=== PATIENT | female | born 1965 | race Two or more races ===

== ENCOUNTER → 2017-12-09 13:17 | Outpatient (CLI) | payer MEDICAID, SELFPAY ==
--- NOTE | 2017-12-09 13:21 | RAD_ITS ---
STUDY: X-RAY CHEST REASON FOR EXAM: Female, 52 years old. Bronchitis, cough for 2 months TECHNIQUE: PA and lateral views of the chest. COMPARISON: None. FINDINGS: The lungs are clear and expanded. There is no demonstrated pleural abnormality. Normal size heart. Normal mediastinum and diana. Normal visualized pulmonary arteries. Normal visualized aortic arch and descending thoracic aorta. There are diffuse degenerative changes of the visualized thoracic spine. There appears to be a small bone island within the inferior right scapula. There is no demonstrated abnormality of the visualized soft tissue structures of the upper abdomen. RAD/Chest PA and Lateral IMPRESSION: Degenerative changes, as described above. No demonstrated acute cardiopulmonary process. Electronically Signed: Yvan Tovar DO at 9:06 EDT Tel , Service support ,
== END ==
PROVIDERS: Family Provider Family Medicine Geriatric Medicine; PCP Family Medicine Geriatric Medicine; Visit Provider Family Medicine Geriatric Medicine
DX: J40 Bronchitis, not specified as acute or chronic (principal)
CPT/HCPCS: 71046

== ENCOUNTER 2019-01-23 12:54 | Emergency (ER) | payer MEDICAID, SELFPAY ==
[2019-01-23 12:55] VITALS: BP 134/65; PULSE 85; RESP 18; TEMP 36.4; O2SAT 98; BMI 46.0
--- NOTE | 2019-01-23 13:09 | EKG12_ITS ---
Test Reason : REPEAT Blood Pressure : / mmHG Vent. Rate : 072 BPM Atrial Rate : 072 BPM P-R Int : 160 ms QRS Dur : 086 ms QT Int : 396 ms P-R-T Axes : 004 -11 -18 degrees QTc Int : 433 ms Normal sinus rhythm Nonspecific ST and T wave abnormality Abnormal ECG Confirmed by RALF GUY ([id number]), marketing editor OLIMPIA CA ([id number]) on 01/24/2019 1:38:22 PM Referred By: FABI Confirmed By:RALF GUY
--- NOTE | 2019-01-23 13:20 | RAD_ITS ---
STUDY: X-RAY CHEST REASON FOR EXAM: Female, 53 years old. TECHNIQUE: COMPARISON: December 09, 2017 FINDINGS: The lungs are clear and expanded. There is no demonstrated pleural abnormality. Normal size heart. Normal mediastinum and diana. Normal visualized pulmonary arteries. Normal visualized aortic arch and descending thoracic aorta. Normal visualized thoracic spine. Normal visualized ribs, clavicles, and shoulders. There is no demonstrated abnormality of the visualized soft tissue structures of the upper abdomen. RAD/Chest 1 View (Portable) IMPRESSION: Normal x-ray examination of the chest. Electronically Signed: Virginia Michael, at 13:39 EDT Tel , Service support ,
[2019-01-23 13:31] LABS: Basophil# 0.04 X10^3/uL; Basophil% 0.6 % (0-1); Eosinophil# 1.11 X10^3/uL; Eosinophils% 16.8 % (0-5); Hematocrit 37.5 % (37-47); Hemoglobin 12.3 g/dl (12.0-15.0); Lymphocyte % 27.3 % (19-41); Mean Corp Hgb Conc 32.8 g/gl (32-36); Mean Corpuscular Hgb 28.9 pg (27.0-32.0); Mean Corpuscular Volume 88.2 fL (81-99); Mean Platelet Vol. 8.9 fl (6.2-12.0); Monocyte# 0.58 X10^3/uL; Monocyte% 8.8 % (0-10); Neutrophil # 3.04 X10^3/uL (2.7-7.7); Neutrophil % 46.2 % (47-70); POSITIVE COUNT NO; POSITIVE DIFFERENTIAL NO; POSITIVE MORPHOLOGY NO; Platelet Count 236 K/mm3 (150-450); RBC Distribution Width CV 13.4 % (11.6-14.6); RBC Distribution Width SD 42.8 fl (35.1-43.9); Red Blood Count 4.25 M/mm3 (4.2-5.4); White Blood Count 6.6 K/mm3 (4.4-11.0)
[2019-01-23 13:46] LABS: Anion Gap 11 (5-15); BUN 15 mg/dL (7-18); BUN/Creat Ratio 17.2 RATIO (10-20); Chloride 103 mmol/L (98-107); Creatinine, Serum 0.87 mg/dL (0.55-1.02); EST Glomerular Filtration Rate 72 mL/min (>60); Est Glom Filt Rate - Afr Amer 87 mL/min (>60); Estimated Creatinine Clearance 59.15 ml/min; Glucose 100 mg/dL (74-106); Potassium 3.8 mmol/L (3.5-5.1); Sodium Level 142 mmol/L (136-145)
[2019-01-23 13:55] VITALS: BP 115/75; PULSE 83; RESP 16; O2SAT 96
[2019-01-23 14:00] VITALS: BP 148/85; PULSE 76; RESP 16; O2SAT 98
[2019-01-23] MEDS: Aspirin 81 MG TAB.CHEW 324 MG PO (14:12)
[2019-01-23 16:00] VITALS: BP 136/78; PULSE 76; RESP 16; O2SAT 96
--- NOTE | 2019-01-23 16:34 | EKG12_ITS ---
Test Reason : CP Blood Pressure : / mmHG Vent. Rate : 085 BPM Atrial Rate : 085 BPM P-R Int : 160 ms QRS Dur : 090 ms QT Int : 364 ms P-R-T Axes : 043 -16 011 degrees QTc Int : 433 ms Normal sinus rhythm Minimal voltage criteria for LVH, may be normal variant Borderline ECG Confirmed by RALF GUY ([id number]), graphic editor DYAN HOUSER ([id number] on 01/25/2019 8:33:36 AM Referred By: PIPE Confirmed By:RALF GUY
--- NOTE | 2019-01-23 16:34 | ED.VISSUMM ---
- ER Visit Summary Date of Service: 01/23/19 Chief Complaint: Chest discomfort History of Present Illness: The patient is a 53 F with history of MS and anxiety. Also hypertension high cholesterol. No history of cardiac disease nor any PE. Patient states for the last 3 weeks she has had some intermittent chest discomfort which she describes as sharp. Last less than a minute. Not associated with exertion. States that she has put on a lot of weight in the last 2 years. States she has exertional dyspnea but that is not new. She denies any exertional chest pain. She is never had a cardiac catheterization nor as she has had a stress test. He denies any recent travel, surgery or immobilization. She denies any leg pain or swelling. Pain is not pleuritic. She has not had any hemoptysis. Physical Examination: Middle-aged female vital signs stable and afebrile pulse ox 98% on 2 L. No hypoxia. HEENT exam unremarkable. Neck nontender no lymphadenopathy. Lungs clear to auscultation bilaterally. Heart regular rate and rhythm no murmur rate about 80. Chest wall nontender. No ecchymosis or bruising. No subcu air crepitance. Abdomen soft nontender normal bowel sounds no peritoneal signs. Patient is moving all 4 extremities. Calves are nontender without edema or cords. She is equal symmetrical radial pulses. Neurologically she is awake and alert with no focal motor deficits. 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 Normal dorsi and plantar flexion. Test Results: Chest x-ray normal cardiac silhouette mediastinum portable view read by myself and radiologist. No acute abnormality. EKG sinus rhythm rate 85 with no acute signs of MT or ischemia. Repeat EKG was done and showed no new findings and was unchanged. CBC normal white count 6 hemoglobin 12. Electrolytes normal normal creatinine and gap. Troponin normal at less than 0.015. Emergency Department Course and Treatment: Patient with atypical nonexertional chest pain. She has a history of anxiety and 2 weeks ago she lost her . She states she is under a lot of stress. I explained to her that I could not rule in or out this being cardiac in etiology. She however all of her test results. I discussed with both her and her daughter about admitting her in getting inpatient stress test. Patient was absolutely against this and stated she had things to do at home and had to help her daughter watch her grandchildren. And wants to be discharged we will follow-up in outpatient with her primary care physician Dr. Perry and get an outpatient stress test. I have Dr. Roberts on patient discussed this with him. Treatment Plan: Discharged home. Follow-up with primary care physician soon as possible to get a stress test within the next week. Return if feeling worse. Disposition: Discharge Impression: Acute atypical chest pain of uncertain etiology This note was generated with [employer] dictation software. It may contain incorrect words, spelling, and punctuation that were not noted in review of the chart prior to signing ED Disposition - Plan for ED Patient: Referrals: Miguel Perry Chi, MD [Primary Care Provider] -
--- NOTE | 2019-01-23 16:39 | ED.DEP ---
ED Disposition - Plan for ED Patient: Disposition: Home or Assisted Living Instructions: CHEST PAIN, Uncertain Cause Referrals: Miguel Perry Chi, MD [Primary Care Provider] - As soon as possible Additional Instructions: Follow-up with Dr. Perry to get an outpatient stress test scheduled as soon as possible hopefully within the next 5 to 7 days. Return to the ER if you are feeling worse specifically if you are short of breath or have worsening chest pain.
[2019-01-23 16:59] VITALS: BP 136/78; PULSE 76; RESP 16; O2SAT 96
== END 2019-01-23 17:00 | disposition home or self-care (01) ==
PROVIDERS: Emergency Provider Emergency Medicine; Family Provider Family Medicine Geriatric Medicine; PCP Family Medicine Geriatric Medicine
DX: R07.89 Other chest pain (principal); Z87.891 Personal history of nicotine dependence
CPT/HCPCS: 71045; 80048; 84484; 85025; 93005; 99284; A4216

== ENCOUNTER → 2019-01-24 14:52 | Outpatient (CLI) | payer MEDICAID, SELFPAY ==
[2019-01-23 12:55] VITALS: BMI 46.0
[2019-01-24 17:33] LABS: Absolute Lymphocyte Count 2.07 X10^3/ul (0.83-4.51); Absolute Neutrophil Count 3.7 X10^3/uL (2.0-7.7); Basophil# 0.05 X10^3/uL; Basophil% 0.6 % (0-1); Eosinophil# 1.36 X10^3/uL; Eosinophils% 17.6 % (0-5); Hematocrit 37.4 % (37-47); Hemoglobin 12.1 g/dl (12.0-15.0); Lymphocyte # 2.07 X10^3/ul (4.0); Lymphocyte % 26.8 % (19-41); Mean Corp Hgb Conc 32.4 g/gl (32-36); Mean Corpuscular Hgb 28.9 pg (27.0-32.0); Mean Corpuscular Volume 89.3 fL (81-99); Mean Platelet Vol. 9.5 fl (6.2-12.0); Monocyte# 0.54 X10^3/uL; Neutrophil # 3.68 X10^3/uL (2.7-7.7); Neutrophil % 47.7 % (47-70); Platelet Count 275 K/mm3 (150-450); RBC Distribution Width CV 13.5 % (11.6-14.6); RBC Distribution Width SD 43.6 fl (35.1-43.9); Red Blood Count 4.19 M/mm3 (4.2-5.4); White Blood Count 7.7 K/mm3 (4.4-11.0)
[2019-01-24 17:38] LABS: POSITIVE COUNT NO; POSITIVE DIFFERENTIAL NO; POSITIVE MORPHOLOGY NO
[2019-01-24 17:50] LABS: ALB/GLOB Ratio 0.9 RATIO (0.9-2.4); AST(SGOT) 27 U/L (15-37); Alanine Aminotransfer ALT/SGPT 47 U/L (13-56); Albumin, Serum 3.4 g/dL (3.2-5.0); Alkaline Phosphatase 78 U/L (45-117); Anion Gap 5 (5-15); BUN 16 mg/dL (7-18); BUN/Creat Ratio 19.3 RATIO (10-20); Calcium,Total 9.2 mg/dL (8.5-10.1); Chloride 106 mmol/L (98-107); Creatinine, Serum 0.83 mg/dL (0.55-1.02); EST Glomerular Filtration Rate 76 mL/min (>60); Est Glom Filt Rate - Afr Amer 93 mL/min (>60); Globulin 3.9 g/dL (2.2-4.2); Glucose 98 mg/dL (74-106); Potassium 3.7 mmol/L (3.5-5.1); Protein, Total 7.3 g/dL (6.4-8.2); Sodium Level 138 mmol/L (136-145); Thyroid Stim Hormone (TSH) 4.25 uIU/mL (0.358-3.74)
== END ==
PROVIDERS: Family Provider Family Medicine Geriatric Medicine; PCP Family Medicine Geriatric Medicine; Visit Provider Family Medicine Geriatric Medicine
DX: I10 Essential (primary) hypertension (principal)
CPT/HCPCS: 36415; 80053; 84443; 85025

== ENCOUNTER → 2020-08-05 15:08 | Outpatient (CLI) | payer MEDICAID, SELFPAY ==
[2020-08-05 16:10] LABS: Absolute Lymphocyte Count 1.69 X10^3/uL (0.83-4.51); Absolute Neutrophil Count 3.8 X10^3/uL (2.0-7.7); Basophil# 0.03 X10^3/uL; Basophil% 0.5 % (0-1); Eosinophil# 0.33 X10^3/uL; Eosinophils% 5.1 % (0-5); Hematocrit 40.5 % (37-47); Hemoglobin 13.5 g/dL (12.0-15.0); Lymphocyte # 1.69 X10^3/ul (4.0); Lymphocyte % 26.3 % (19-41); Mean Corp Hgb Conc 33.3 g/dL (32-36); Mean Corpuscular Hgb 29.5 pg (27.0-32.0); Mean Corpuscular Volume 88.6 fL (81-99); Mean Platelet Vol. 9.1 fl (6.2-12.0); Monocyte# 0.53 X10^3/uL; Monocyte% 8.3 % (0-10); NRBC Flagged by Analyzer 0 % (0-5); Neutrophil # 3.81 X10^3/uL (2.7-7.7); Neutrophil % 59.3 % (47-70); Platelet Count 273 K/mm3 (150-450); RBC Distribution Width CV 12.3 % (11.6-14.6); RBC Distribution Width SD 39.6 fl (35.1-43.9); Red Blood Count 4.57 M/mm3 (4.2-5.4); White Blood Count 6.4 K/mm3 (4.4-11.0)
[2020-08-05 16:41] LABS: ALB/GLOB Ratio 0.9 RATIO (0.9-2.4); AST(SGOT) 18 U/L (15-37); Alanine Aminotransfer ALT/SGPT 38 U/L (13-56); Albumin, Serum 3.5 g/dL (3.2-5.0); Alkaline Phosphatase 79 U/L (45-117); BUN 16 mg/dL (7-18); BUN/Creat Ratio 18.5 RATIO (10-20); Calcium,Total 9.1 mg/dL (8.5-10.1); Creatinine, Serum 0.87 mg/dL (0.55-1.02); EST Glomerular Filtration Rate 72 mL/min (>60); Est Glom Filt Rate - Afr Amer 87 mL/min (>60); Globulin 3.9 g/dL (2.2-4.2); Glucose 79 mg/dL (74-106); Protein, Total 7.4 g/dL (6.4-8.2); Sodium Level 138 mmol/L (136-145)
[2020-08-05 16:42] LABS: Anion Gap 4 (5-15); Chloride 104 mmol/L (98-107); Thyroid Stim Hormone (TSH) 3.01 uIU/mL (0.358-3.74)
== END ==
PROVIDERS: PCP Family Medicine Geriatric Medicine; Visit Provider Family Medicine Geriatric Medicine
DX: I10 Essential (primary) hypertension (principal)
CPT/HCPCS: 36415; 80053; 84443; 85025